=== PATIENT | female | born 1945 | race Caucasian/White ===

== ENCOUNTER → 2024-02-01 11:08 | Outpatient (REF) | payer OTHER, SELFPAY | LOC: RAD 11:08 | PROVIDERS: ATTENDING PHYSICIAN Student in an Organized Health Care Education/Training Program; FAMILY PHYSICIAN Family Medicine | DX: M25.562 Pain in left knee (principal) | CPT/HCPCS: 73564 ==

== ENCOUNTER → 2024-02-19 10:42 | Outpatient (REF) | payer OTHER, SELFPAY | LOC: HWRAD 10:42 | PROVIDERS: ATTENDING PHYSICIAN Student in an Organized Health Care Education/Training Program | DX: M25.562 Pain in left knee (principal) | CPT/HCPCS: 76882 ==

== ENCOUNTER → 2024-06-09 13:50 | Outpatient (REF) | payer OTHER, SELFPAY | LOC: WDC 13:50 | PROVIDERS: ATTENDING PHYSICIAN Family Medicine | DX: Z13.21 Encounter for screening for nutritional disorder (principal) | CPT/HCPCS: 77063; 77067 ==

== ENCOUNTER → 2024-09-21 14:56 | Outpatient (REF) | payer OTHER, SELFPAY | LOC: RAD 14:56 | PROVIDERS: ATTENDING PHYSICIAN Nurse Practitioner Family; FAMILY PHYSICIAN Family Medicine | DX: M79.651 Pain in right thigh (principal) | CPT/HCPCS: 93971 ==

== ENCOUNTER → 2025-02-08 14:35 | Outpatient (REF) | payer OTHER, SELFPAY | LOC: RAD 14:35 | PROVIDERS: ATTENDING PHYSICIAN Family Medicine | DX: R05.9 Cough, unspecified (principal) | CPT/HCPCS: 71046 ==

== ENCOUNTER → 2025-03-28 14:39 | Outpatient (REF) | payer OTHER, SELFPAY | LOC: RAD 14:39 | PROVIDERS: ATTENDING PHYSICIAN Nurse Practitioner Family; FAMILY PHYSICIAN Family Medicine | DX: R05.1 Acute cough (principal) | CPT/HCPCS: 71046 ==

== ENCOUNTER → 2025-05-19 07:24 | Outpatient (REF) | payer OTHER, SELFPAY ==
[2025-05-19 08:45] LABS: FSH 55.2 mIU/ml
[2025-05-19 14:24] LABS: TSH 1.86 uIU/ml (0.47-4.68)
== END ==
LOC: REG 07:24
PROVIDERS: ATTENDING PHYSICIAN Nurse Practitioner Family; FAMILY PHYSICIAN Family Medicine
DX: R63.5 Abnormal weight gain (principal); E03.9 Hypothyroidism, unspecified
CPT/HCPCS: 36415; 82024; 82627; 82670; 83001; 83002; 84144; 84146; 84403; 84439; 84443

== ENCOUNTER → 2025-10-11 12:28 | Outpatient (REF) | payer OTHER, SELFPAY | LOC: RAD 12:28 | PROVIDERS: ATTENDING PHYSICIAN Family Medicine | DX: M85.80 Other specified disorders of bone density and structure, unspecified site (principal) | CPT/HCPCS: 77080 ==

== ENCOUNTER 2025-10-20 10:58 | Emergency (ER) | payer OTHER, SELFPAY ==
[2025-10-20 11:08] VITALS: BP 165/71
--- NOTE | 2025-10-20 13:16 | ED.GENMED ---
History of Present Illness
General
Chief Complaint: DVT/Possible Blood Clot
Source: patient and records
Time Seen by Provider: 10/20/25 11:39
History of Present Illness
History of Present Illness:
80-year-old female with a past medical history of anterior accessory saphenous vein thrombus presenting to the ER from urgent care for rule out DVT after she started noticing some erythema and what appears to be a palpable cord to the anterolateral
right lower extremity. Patient did not take anything for symptoms prior to arrival. She denies any chest pain, shortness of breath, cough, pleurisy or hemoptysis. Currently not on any anticoagulant medication.
Past History
Past History
ED Past Medical History: Hypercholesterolemia and Other (SVT); Negative Asthma, HTN or NIDDM
ED Past Surgical History: and Orthopedic
Social History
Tobacco: Former smoker
Alcohol: None
Drug: None
Personal:
Living: alone
Review of Systems
Review of Systems
All Other Systems: ROS reviewed and negative except as documented in HPI and ROS
Phy Exam
Physical Exam
Physical Exam:
GENERAL: Alert , in no apparent distress
EYE: conjunctiva clear
Head: Normocephalic atraumatic
NECK: Supple,
ENT: mmm.
LUNGS: no acute respiratory distress
NEUROLOGICAL: Alert and oriented
SKIN: Warm and dry, skin intact. There is a palpable cord to the proximal anterolateral right lower extremity just below the knee. Slight erythema overlying, tender to the touch, no increased warmth compared to the rest of the extremity full
range of motion
MUSCULOSKELETAL: well perfused.
PSYCH: Normal and appropriate interaction.
Scores
Heart Failure Risk
Heart Failure Risk Score: Not Applicable
Heart Score for Chest Pain Patients
STEMI patient?: Not applicable
Withdrawal Assessment of Alcohol
Withdrawal Assessment Completed?: Not applicable
Course
Orders/Labs/Results
Orders:
Orders
10/20/25 11:13
US Legs, Right [US Periph Venous LOWER Ext RT] Urgent
Comment:
Reason For Exam: r/o DVT
Vital Signs
Initial and Last Documented VS:
Initial Vital Signs
Temp Pulse Resp BP Pulse Ox
97.9 F 65 18 165/71 99
10/20/25 11:08 10/20/25 11:08 10/20/25 11:08 10/20/25 11:08 10/20/25 11:08
Last Documented Vital Signs
Temp Pulse Resp BP Pulse Ox
97.9 F 65 18 165/71 99
10/20/25 11:08 10/20/25 11:08 10/20/25 11:08 10/20/25 11:08 10/20/25 13:21
MDM/Problems Addressed
Differential Diagnosis Includes:
Phlebitis
DVT
Cellulitis
No concern for fracture given no trauma
MDM/Problems Addressed:
80-year-old female presenting to the ER for evaluation of a palpable cord and tenderness along the proximal anterolateral portion of the lower leg just below the knee ultrasound ordered. Disposition pending.
*Radiology
Radiology exam reviewed: radiology read reviewed
*Pulse Oximetry
SaO2: 99
Oxygen Mode of Delivery: Room air
Patient hypoxic: no
*Critical Care Note
Total Time (30-74mins, 75-104mins- exclusive of procedures): Not Applicable
Patient Management
Escalation/DeEscalation of care consider admission/obs:
US shows no DVT. Suspect phlebitis. Will treat with NSAIDS/tylenol and warm compressed. Follow up with PCP
ED Attending Note
-
Portions of this chart may have been created with voice recognition software.� Occasional wrong word or��sound alike� substitutions may have occurred due to the inherent limitations of voice recognition software.
Discharge Plan
Departure
Patient Disposition: Home (Routine Discharge)
Date of Disposition: 10/20/25
Time of Disposition: 13:32
Patient with high blood pressure during this ER visit?: Yes
Discharge Problem:
Phlebitis
Instructions: Superficial vein phlebitis and thrombosis
Prescriptions:
No Action
FOLic ACID
PO DAILY
Patient Comments:
pt reports she takes a 'lot of supplements but I can't remember them'
Nature-Throid
PO DAILY
Patient Comments:
pt unable to recall dose
Referrals:
Fernando Monsivais DO [Family Provider, Family Practice]
Interventions
Interventions:
*General Assessment Last Done: 10/20/25 11:10
*Neglect/Abuse Screening Last Done: 10/20/25 11:10
*ED COVID-19 Vaccine History Last Done: 10/20/25 11:10
*ED Influenza Vaccine History Last Done: 10/20/25 11:10
[facility] Fall Risk Assessment Tool Last Done: 10/20/25 12:04
*Risk Screen - Suicide (C-SSRS) Last Done: 10/20/25 11:10
*Nursing Disposition Last Done: 10/20/25 13:53
ED- Cardiac Assessment Last Done: 10/20/25 12:03
ED- Pulmonary Assessment Last Done: 10/20/25 12:03
ED-Peripheral Vascular Assessment Last Done: 10/20/25 12:03
ED-Skin Assessment Last Done: 10/20/25 12:03
Discharge Date and Time
Discharge Date/Time: 10/20/25 13:53
Print Language: LITHUANIAN
== END 2025-10-20 13:53 | disposition home or self-care (01) ==
LOC: EMR 10:58
PROVIDERS: EMERGENCY PHYSICIAN Emergency Medicine; FAMILY PHYSICIAN Family Medicine
DX: I80.9 Phlebitis and thrombophlebitis of unspecified site (principal); E78.00 Pure hypercholesterolemia, unspecified; E11.9 Type 2 diabetes mellitus without complications; Z86.718 Personal history of other venous thrombosis and embolism; Z87.891 Personal history of nicotine dependence
CPT/HCPCS: 99284; 93971